=== PATIENT | male | born 1990 | race Hispanic/Latino ===

== ENCOUNTER 2019-01-31 17:24 | Emergency (ER) | payer OTHER ==
[2019-01-31 17:37] VITALS: BP 169/100; PULSE 72; RESP 16; TEMP 98.2; O2SAT 98
[2019-01-31] MEDS ORDERED: Lidocaine 2% MPF (5 ml) Inj ONE (18:03)
[2019-01-31] MEDS ORDERED: Bacitracin 500 Units/gm Oint Foilpak UD ONE (18:03)
--- NOTE | 2019-01-31 18:40 | C.PDOC ---
History Of Present Illness 28 year old male presents to the emergency department with complaints of left- finger laceration sustained prior to arrival. Patient states that he was using a new, clean, steak knife when he cut his left index finger. Patient reports being up to date with his tetanus as of 2 years ago. Time Seen by Provider: 01/31/19 17:57 Chief Complaint (Nursing): Abnormal Skin Integrity History Per: Patient History/Exam Limitations: no limitations Onset/Duration Of Symptoms: Hrs Current Symptoms Are (Timing): Still Present Location Of Injury: Left: Hand (index finger) Quality Of Symptoms: Other (laceration) Past Medical History Reviewed: Historical Data, Nursing Documentation, Vital Signs Vital Signs: Last Vital Signs Temp 98.2 F 01/31/19 17:34 Pulse 72 01/31/19 17:34 Resp 16 01/31/19 17:34 BP 169/100 H 01/31/19 17:34 Pulse Ox 98 01/31/19 17:34 - Medical History PMH: HTN Surgical History: No Surg Hx Family History: States: No Known Family Hx - Social History Hx Alcohol Use: No Hx Substance Use: No - Immunization History Hx Tetanus Toxoid Vaccination: Yes Review Of Systems Except As Marked, All Systems Reviewed And Found Negative. Constitutional: Negative for: Fever, Chills Skin: Positive for: Other (laceration ) Neurological: Negative for: Weakness, Numbness Physical Exam - Physical Exam Appears: Non-toxic, No Acute Distress Skin: Warm, Dry, Other (1.5cm laceration to the left second digit, above the middle phalanx on the palmar surface. Mild bleeding. ) Head: Atraumatic, Normacephalic Eye(s): bilateral: Normal Inspection Neck: Supple Chest: Symmetrical Extremity: Normal ROM Neurological/Psych: Oriented x3, Normal Speech, Normal Cognition, Normal Motor, Normal Sensation ED Course And Treatment O2 Sat by Pulse Oximetry: 98 (RA) Pulse Ox Interpretation: Normal Progress Note: Laceration repaired, bacitracin and dressing applied, patient is clear for discharge. Laceration - Laceration Repair Left Index Finger Wound Length (In cm): 1.5 Description Of Wound: Linear Anesthesia: Lidocaine 2% (digital block) Wound Examination: Irrigated With Saline Wound Closure: Suture (3) Suture Technique And Material Used: Interrupted, Nylon (4-0) Wound Complexity: Simple Disposition - Disposition Disposition: HOME/ ROUTINE Disposition Time: 18:38 Condition: STABLE Additional Instructions: Follow up with PMD within 1-2 days. Return to ED if feel worse. Suture removal in 7-8 days. Instructions: Laceration Repair With Stitches (DC) Forms: [employer] ([place]) - Clinical Impression Clinical Impression: Finger laceration - PA / FUR TRAPPER / Resident Statement MD/DO has reviewed & agrees with the documentation as recorded. - Scribe Statement The provider has reviewed the documentation as recorded by the Scribe (Madi Henley) All medical record entries made by the Scribe were at my direction and personally dictated by me. I have reviewed the chart and agree that the record accurately reflects my personal performance of the history, physical exam, medical decision making, and the department course for this patient. I have also personally directed, reviewed, and agree with the discharge instructions and disposition.
== END 2019-01-31 18:48 | disposition home or self-care (01) ==
LOC: C.ER 17:24
DX: S61.211A Laceration without foreign body of left index finger without damage to nail, initial encounter (principal); W26.0XXA Contact with knife, initial encounter